=== PATIENT | male | born 1990 | race African-American/Black ===

== ENCOUNTER 2017-08-06 00:22 | Emergency (ER) | payer SELFPAY ==
[~2017-08-06] VITALS: Ht 195.6 cm; Wt 75.0 kg
[2017-08-06 00:23] VITALS: BP 131/86; PULSE 67; RESP 18; TEMP 98; O2SAT 100
[2017-08-06 00:51] LABS: AUTOMATED NEUTROPHIL # 4.4 TH/MM3 (1.8-7.7); BASOPHIL # 0.1 TH/MM3 (0-0.2); BASOPHIL % 0.8 % (0.0-2.0); EOSINOPHIL # 0.3 TH/MM3 (0-0.4); EOSINOPHIL % 3.8 % (0.0-4.0); HEMATOCRIT 40.8 % (39.0-51.0); HEMOGLOBIN 13.3 GM/DL (13.0-17.0); MEAN CELL VOLUME 88.5 FL (80.0-100.0); MEAN CORPUSCULAR HEMOGLOBIN 28.7 PG (27.0-34.0); MEAN CORPUSCULAR HGB CONC 32.5 % (32.0-36.0); MEAN PLATELET VOLUME 8.3 FL (7.0-11.0); MONO % 6.6 % (0.0-8.0); MONOCYTE # 0.5 TH/MM3 (0-0.9); NEUT % 52.8 % (16.0-70.0); PLATELET COUNT 197 TH/MM3 (150-450); RED BLOOD COUNT 4.61 MIL/MM3 (4.50-5.90); RED CELL DISTRIBUTION WIDTH 14.6 % (11.6-17.2); WHITE BLOOD COUNT 8.3 TH/MM3 (4.0-11.0)
[2017-08-06 01:07] LABS: ALBUMIN 4.6 GM/DL (3.4-5.0); ALT (GPT) 14 U/L (12-78); AST (GOT) 12 U/L (15-37); BICARBONATE 28.4 MEQ/L (21.0-32.0); BLOOD UREA NITROGEN 12 MG/DL (7-18); CALCIUM 9.3 MG/DL (8.5-10.1); CHLORIDE 105 MEQ/L (98-107); CREATININE 1.21 MG/DL (0.60-1.30); GLOMERULAR FILTRATION RATE 72 ML/MIN (>89); GLUCOSE,RANDOM 114 MG/DL (74-106); SODIUM (NA) 139 MEQ/L (136-145)
[2017-08-06 01:10] LABS: ALKALINE PHOSPHATASE 56 U/L (45-117); TOTAL BILIRUBIN ADULT 0.2 MG/DL (0.2-1.0); TOTAL PROTEIN 7.9 GM/DL (6.4-8.2)
[2017-08-06] MEDS ORDERED: ONDANSETRON HCL 4 MG/2 ML VIAL IV PUSH ONE (01:45)
[2017-08-06] MEDS ORDERED: SODIUM CHLOR 0.9% 1000 ML INJ 1,000 ML IV ONE (02:00)
--- NOTE | 2017-08-06 03:38 | PD ---
HPI Chief Complaint: GI Complaint Time Seen by Provider: 01:12 Travel History International Travel<30 days: No Contact w/Intl Traveler<30days: No Traveled to known affect area: No History of Present Illness HPI Patient has had multiple episodes of vomiting all day no other past medical history he has no abdominal pain . Pt reports that he just cannot keep anything down. he has no sick contacts, no fever no trauma , no PMHx . pt took nothing to relieve his symptoms and has not seen another MD to treat this vomiting PFSH Past Medical History Medical History: Denies Significant Hx Tetanus Vaccination: < 5 Years Influenza Vaccination: No Past Surgical History Surgical History: No Previous Surgery Social History Alcohol Use: Yes ([facility]) Tobacco Use: Yes Substance Use: No Allergies-Medications (Allergen,Severity, Reaction): Coded Allergies: No Known Allergies (Unverified , 08/06/17) Reported Meds & Prescriptions Reported Meds & Active Scripts Active Zofran (Ondansetron HCl) 4 Mg Tab 4 Mg PO Q6HR PRN Review of Systems Except as stated in HPI: all other systems reviewed are Neg Gastrointestinal: Positive: Nausea, Vomiting Physical Exam Narrative GENERAL: appears nauseous , non toxic and no other complaint except vomiting AOX3 SKIN: Warm and dry. HEAD: Atraumatic. Normocephalic. EYES: Pupils equal and round. No scleral icterus. No injection or drainage. ENT: No nasal bleeding or discharge. Mucous membranes pink and moist. NECK: Trachea midline. No JVD. CARDIOVASCULAR: Regular rate and rhythm. RESPIRATORY: No accessory muscle use. Clear to auscultation. Breath sounds equal bilaterally. GASTROINTESTINAL: Abdomen soft, NON-tender, nondistended. Hepatic and splenic margins not palpable. MUSCULOSKELETAL: Extremities without clubbing, cyanosis, or edema. No obvious deformities. NEUROLOGICAL: Awake and alert. No obvious cranial nerve deficits. Motor grossly within normal limits. Five out of 5 muscle strength in the arms and legs. Normal speech. PSYCHIATRIC: Appropriate mood and affect; insight and judgment normal. Data Data Last Documented VS Orders Orders Complete Blood Count With Diff (08/06/17 00:34) Comprehensive Metabolic Panel (08/06/17 00:34) Iv Access Insert/Monitor (08/06/17 00:34) Ondansetron Inj (Zofran Inj) (08/06/17 01:45) Sodium Chlor 0.9% 1000 Ml Inj (Ns 1000 M (08/06/17 02:00) Ed Discharge Order (08/06/17 04:39) Labs Laboratory Tests Test 08/06/17 00:37 White Blood Count 8.3 TH/MM3 Red Blood Count 4.61 MIL/MM3 Hemoglobin 13.3 GM/DL Hematocrit 40.8 % Mean Corpuscular Volume 88.5 FL Mean Corpuscular Hemoglobin 28.7 PG Mean Corpuscular Hemoglobin Concent 32.5 % Red Cell Distribution Width 14.6 % Platelet Count 197 TH/MM3 Mean Platelet Volume 8.3 FL Neutrophils (%) (Auto) 52.8 % Lymphocytes (%) (Auto) 36.0 % Monocytes (%) (Auto) 6.6 % Eosinophils (%) (Auto) 3.8 % Basophils (%) (Auto) 0.8 % Neutrophils # (Auto) 4.4 TH/MM3 Lymphocytes # (Auto) 3.0 TH/MM3 Monocytes # (Auto) 0.5 TH/MM3 Eosinophils # (Auto) 0.3 TH/MM3 Basophils # (Auto) 0.1 TH/MM3 CBC Comment DIFF FINAL Differential Comment Blood Urea Nitrogen 12 MG/DL Creatinine 1.21 MG/DL Random Glucose 114 MG/DL Total Protein 7.9 GM/DL Albumin 4.6 GM/DL Calcium Level 9.3 MG/DL Alkaline Phosphatase 56 U/L Aspartate Amino Transf (AST/SGOT) 12 U/L Alanine Aminotransferase (ALT/SGPT) 14 U/L Total Bilirubin 0.2 MG/DL Sodium Level 139 MEQ/L Potassium Level 4.1 MEQ/L Chloride Level 105 MEQ/L Carbon Dioxide Level 28.4 MEQ/L Anion Gap 6 MEQ/L Estimat Glomerular Filtration Rate 72 ML/MIN [facility] Medical Decision Making Medical Screen Exam Complete: Yes Emergency Medical Condition: Yes Differential Diagnosis viral Gastroenteritis vs SBO vs food toxin vomit, other Narrative Course Zofran IV and NS IV and pt slept and feels much better , all labs normal and pt feels good and tolerated PO Diagnosis Primary Impression: Vomiting Qualified Codes: R11.10 - Vomiting, unspecified Scripts Ondansetron (Zofran) 4 Mg Tab 4 MG PO Q6HR Y for NAUSEA OR VOMITING, #20 TAB 0 Refills Prov: To Yang MD 08/06/17 Disposition: 01 DISCHARGE HOME Condition: Good To Yang MD Aug 06, 2017 03:38
[2017-08-06] MEDS ORDERED: ZOFR4TAB PO (04:38)
== END 2017-08-06 04:42 | disposition home or self-care (01) ==
LOC: NEPE 00:22
DX: R11.2 Nausea with vomiting, unspecified (principal); Z72.0 Tobacco use
CPT/HCPCS: 80053; 85025; 96374; 99283; J2405; J7030

== ENCOUNTER 2017-11-21 07:33 | Emergency (ER) | payer SELFPAY ==
[~2017-11-21] VITALS: Ht 172.7 cm; Wt 70.0 kg
[~2017-11-21 07:33] MED LIST: ZOFR4TAB PO
[2017-11-21 07:36] VITALS: BP 121/69; PULSE 86; RESP 16; TEMP 98.6; O2SAT 100
--- NOTE | 2017-11-21 08:13 | PD ---
Data Data Last Documented VS Vital Signs Date Time Temp Pulse Resp B/P (MAP) Pulse Ox O2 Delivery O2 Flow Rate FiO2 11/21/17 12:40 66 16 118/77 (91) 100 11/21/17 07:36 98.6 Orders Orders Complete Blood Count With Diff (11/21/17 08:09) Comprehensive Metabolic Panel (11/21/17 08:09) Urinalysis - C+S If Indicated (11/21/17 08:09) Iv Access Insert/Monitor (11/21/17 08:09) Ecg Monitoring (11/21/17 08:09) Oximetry (11/21/17 08:09) Sodium Chloride 0.9% Flush (Ns Flush) (11/21/17 08:15) Gc And Chlamydia Pcr (11/21/17 08:09) Urine Culture (11/21/17 08:27) Chest, Single Ap (11/21/17 10:05) Azithromycin (Zithromax) (11/21/17 10:15) Ceftriaxone Inj (Rocephin Inj) (11/21/17 10:15) Ed Discharge Order (11/21/17 11:17) Labs Laboratory Tests Test 11/21/17 08:25 11/21/17 08:27 White Blood Count 4.4 TH/MM3 Red Blood Count 4.37 MIL/MM3 Hemoglobin 12.7 GM/DL Hematocrit 38.6 % Mean Corpuscular Volume 88.3 FL Mean Corpuscular Hemoglobin 29.1 PG Mean Corpuscular Hemoglobin Concent 33.0 % Red Cell Distribution Width 14.0 % Platelet Count 188 TH/MM3 Mean Platelet Volume 8.4 FL Neutrophils (%) (Auto) 51.4 % Lymphocytes (%) (Auto) 34.3 % Monocytes (%) (Auto) 9.3 % Eosinophils (%) (Auto) 4.3 % Basophils (%) (Auto) 0.7 % Neutrophils # (Auto) 2.3 TH/MM3 Lymphocytes # (Auto) 1.5 TH/MM3 Monocytes # (Auto) 0.4 TH/MM3 Eosinophils # (Auto) 0.2 TH/MM3 Basophils # (Auto) 0.0 TH/MM3 CBC Comment DIFF FINAL Differential Comment Blood Urea Nitrogen 9 MG/DL Creatinine 1.08 MG/DL Random Glucose 81 MG/DL Total Protein 7.3 GM/DL Albumin 4.3 GM/DL Calcium Level 8.9 MG/DL Alkaline Phosphatase 44 U/L Aspartate Amino Transf (AST/SGOT) 9 U/L Alanine Aminotransferase (ALT/SGPT) 12 U/L Total Bilirubin 0.5 MG/DL Sodium Level 142 MEQ/L Potassium Level 3.5 MEQ/L Chloride Level 110 MEQ/L Carbon Dioxide Level 26.8 MEQ/L Anion Gap 5 MEQ/L Estimat Glomerular Filtration Rate 99 ML/MIN Urine Color YELLOW Urine Turbidity CLEAR Urine pH 6.0 Urine Specific [place] 1.028 Urine Protein TRACE mg/dL Urine Glucose (UA) NEG mg/dL Urine Ketones NEG mg/dL Urine Occult Blood NEG Urine Nitrite NEG Urine Bilirubin NEG Urine Urobilinogen 2.0 MG/DL Urine Leukocyte Esterase MOD Urine RBC 6 /hpf Urine WBC 19 /hpf Urine Squamous Epithelial Cells 1 /hpf Urine Bacteria RARE /hpf Urine Mucus MANY /lpf Microscopic Urinalysis Comment CULTURE INDICATED Chlamydia trachomatis DNA (PCR) DETECTED Neisseria gonorrhoeae DNA (PCR) NOT DETECTED MDM Supervised Visit with [facility]ALINO: Yes Narrative Course I, Dr. Francois, have reviewed the advance practice practitioner's documentation and am in agreement, met with the patient face to face, made the diagnosis, and the medical decision making was done by me. *My assessment and Findings: Patient seen and examined by me in addition to Umesh Maurice PA-C, this is a 27-year-old very well-appearing male, weight loss, mild blood-tinged sputum with a dry cough. His chief complaint today however is a rash on the glans penis. This appears to be fungal in nature, no chancre is appreciated. We briefly considered the diagnosis of HIV in this patient as well, he looks pale but does not have any conjunctival pallor. There will soon 2 view chest x-ray is basic labs today. I anticipate that his workup will probably be negative here and will have to have him follow-up with his daily health clinic outpatient for further workup of his weight loss. He certainly is not cachectic however he is thin and has a BMI of 23.5 though I do not appreciate him to be having excessive weight loss at this time Scripts Fluconazole (Diflucan) 150 Mg Tab 150 MG PO WEEKLY for Infection, #2 TAB 0 Refills Prov: Alex Francois MD 11/21/17 Ciprofloxacin (Cipro) 500 Mg Tab 500 MG PO BID for Infection for 10 Days, #20 TAB 0 Refills Prov: Alex Francois MD 11/21/17 Condition: Stable Alex Francois MD Nov 21, 2017 08:13
[2017-11-21] MEDS ORDERED: SODIUM CHLORIDE 0.9% FLUSH 10 ML FLUSH IV FLUSH PRN (08:15)
--- NOTE | 2017-11-21 08:24 | PD ---
HPI Chief Complaint: ENT Complaint Time Seen by Provider: 07:43 Travel History International Travel<30 days: No Contact w/Intl Traveler<30days: No Traveled to known affect area: No History of Present Illness HPI 27-year-old -[place] male presents emergency department with multiple complaints. He states a 15 pound weight loss in the last 3 months. He states intermittent nausea and vomiting over that time. He said decreased appetite, and question of fevers off and on. He states in the last 2 weeks he has noted discoloration to the tip of his penis, which is not sore but sometimes itchy. He denies any bleeding. He states intermittent dysuria. He denies testicular pain, or flank pain. He states recent cough as well during this 3 month time period. This morning he coughed and had what he thought was blood in his sputum which brought him to the emergency department. He denies any upper respiratory symptoms currently. He denies chest pain or shortness of breath. He has no known drug allergies. PFSH Past Medical History Medical History: Denies Significant Hx Diminished Hearing: No Immunizations Current: No Tetanus Vaccination: Unknown Influenza Vaccination: No Past Surgical History Surgical History: No Previous Surgery Social History Alcohol Use: Yes (OCC) Tobacco Use: Yes Substance Use: Yes (MARIJUANA ) Allergies-Medications (Allergen,Severity, Reaction): Coded Allergies: No Known Allergies (Unverified , 11/21/17) Reported Meds & Prescriptions Reported Meds & Active Scripts Active Diflucan (Fluconazole) 150 Mg Tab 150 Mg PO WEEKLY Cipro (Ciprofloxacin HCl) 500 Mg Tab 500 Mg PO BID 10 Days Review of Systems Except as stated in HPI: all other systems reviewed are Neg General / Constitutional: Positive: Fever (Reported), Chills, Weight Loss Eyes: No: Visual changes HENT: No: Headaches Cardiovascular: No: Chest Pain or Discomfort Respiratory: Positive: Cough, Hemoptysis, No: Shortness of Breath, Wheezing, Sneezing, Orthopnea, Stridor, Night Sweats, Pleuritic Pain Gastrointestinal: Positive: Nausea, Vomiting, No: Diarrhea, Abdominal Pain, Hematemesis, Hematochezia, Constipation Genitourinary: Positive: Dysuria (See history of present illness), Discharge, Other (See history of present illness), No: Flank Pain Musculoskeletal: No: Pain Skin: No Rash Neurologic: No: Weakness Psychiatric: No: Depression Endocrine: No: Polydipsia Hematologic/Lymphatic: No: Easy Bruising Physical Exam Narrative GENERAL: Patient appears mildly ill but not septic SKIN: Warm and dry. Decreased pallor. Normal turgor HEAD: Atraumatic. Normocephalic. EYES: Pupils equal and round. No scleral icterus. No injection or drainage. ENT: No nasal bleeding or discharge. Mucous membranes pink and moist. Pharynx is clear. Airways patent. NECK: Trachea midline. Supple and nontender. CARDIOVASCULAR: Regular rate and rhythm. RESPIRATORY: No accessory muscle use. Clear to auscultation. Breath sounds equal bilaterally. GASTROINTESTINAL: Abdomen soft, non-tender, nondistended. Hepatic and splenic margins not palpable. GENITAL: Penis has some superficial discoloration to the meatus suggestive of fungal balanitis. This was examined with Dr. Francois. The area is nontender. No testicular pain. No hernias. MUSCULOSKELETAL: Extremities without clubbing, cyanosis, or edema. No obvious deformities. NEUROLOGICAL: Awake and alert. No obvious cranial nerve deficits. Motor grossly within normal limits. Five out of 5 muscle strength in the arms and legs. Normal speech. PSYCHIATRIC: Appropriate mood and affect; insight and judgment normal. Data Data Last Documented VS Vital Signs Date Time Temp Pulse Resp B/P (MAP) Pulse Ox O2 Delivery O2 Flow Rate FiO2 11/21/17 07:36 98.6 86 16 121/69 (86) 100 Orders Orders Complete Blood Count With Diff (11/21/17 08:09) Comprehensive Metabolic Panel (11/21/17 08:09) Urinalysis - C+S If Indicated (11/21/17 08:09) Iv Access Insert/Monitor (11/21/17 08:09) Ecg Monitoring (11/21/17 08:09) Oximetry (11/21/17 08:09) Sodium Chloride 0.9% Flush (Ns Flush) (11/21/17 08:15) Gc And Chlamydia Pcr (11/21/17 08:09) Urine Culture (11/21/17 08:27) Chest, Single Ap (11/21/17 10:05) Azithromycin (Zithromax) (11/21/17 10:15) Ceftriaxone Inj (Rocephin Inj) (11/21/17 10:15) Labs Laboratory Tests Test 11/21/17 08:25 11/21/17 08:27 White Blood Count 4.4 TH/MM3 Red Blood Count 4.37 MIL/MM3 Hemoglobin 12.7 GM/DL Hematocrit 38.6 % Mean Corpuscular Volume 88.3 FL Mean Corpuscular Hemoglobin 29.1 PG Mean Corpuscular Hemoglobin Concent 33.0 % Red Cell Distribution Width 14.0 % Platelet Count 188 TH/MM3 Mean Platelet Volume 8.4 FL Neutrophils (%) (Auto) 51.4 % Lymphocytes (%) (Auto) 34.3 % Monocytes (%) (Auto) 9.3 % Eosinophils (%) (Auto) 4.3 % Basophils (%) (Auto) 0.7 % Neutrophils # (Auto) 2.3 TH/MM3 Lymphocytes # (Auto) 1.5 TH/MM3 Monocytes # (Auto) 0.4 TH/MM3 Eosinophils # (Auto) 0.2 TH/MM3 Basophils # (Auto) 0.0 TH/MM3 CBC Comment DIFF FINAL Differential Comment Blood Urea Nitrogen 9 MG/DL Creatinine 1.08 MG/DL Random Glucose 81 MG/DL Total Protein 7.3 GM/DL Albumin 4.3 GM/DL Calcium Level 8.9 MG/DL Alkaline Phosphatase 44 U/L Aspartate Amino Transf (AST/SGOT) 9 U/L Alanine Aminotransferase (ALT/SGPT) 12 U/L Total Bilirubin 0.5 MG/DL Sodium Level 142 MEQ/L Potassium Level 3.5 MEQ/L Chloride Level 110 MEQ/L Carbon Dioxide Level 26.8 MEQ/L Anion Gap 5 MEQ/L Estimat Glomerular Filtration Rate 99 ML/MIN Urine Color YELLOW Urine Turbidity CLEAR Urine pH 6.0 Urine Specific [place] 1.028 Urine Protein TRACE mg/dL Urine Glucose (UA) NEG mg/dL Urine Ketones NEG mg/dL Urine Occult Blood NEG Urine Nitrite NEG Urine Bilirubin NEG Urine Urobilinogen 2.0 MG/DL Urine Leukocyte Esterase MOD Urine RBC 6 /hpf Urine WBC 19 /hpf Urine Squamous Epithelial Cells 1 /hpf Urine Bacteria RARE /hpf Urine Mucus MANY /lpf Microscopic Urinalysis Comment CULTURE INDICATED MDM Medical Decision Making Medical Screen Exam Complete: Yes Emergency Medical Condition: Yes Differential Diagnosis Bronchitis. Possible HIV. Fungal balanitis. Narrative Course Patient is medically stable at time of exam. Chest x-ray is ordered. IV access is obtained and labs are ordered including CBC, CMP, urinalysis, urine GC and chlamydia. CBC is unremarkable except for mild anemia with a hemoglobin of 12.7, hematocrit of 38.6. CMP shows chloride of 110, AST 9, alk phos 44, otherwise no significant findings. Urinalysis shows trace of protein, moderate leukocyte esterase, 6 RBCs, 19 WBCs , rare bacteria, and urine culture is placed. Chest x-ray shows no acute process. GC and Chlamydia are pending. Patient is given 1 g Rocephin IV. Patient is given 1200 mg azithromycin p.o. Patient will be continued on Cipro 500 mg twice daily 10 days. Recommend patient follow-up with the [facility] or [facility] department. Diagnosis Primary Impression: Urinary tract infection Qualified Codes: N30.00 - Acute cystitis without hematuria Additional Impressions: Possible exposure to STD Balanitis Referrals: [facility] Dept. Patient Instructions: Balanitis (ED), Chlamydia (ED), Dysuria (ED), General Instructions, Gonorrhea (ED) Additional Instructions: GC and Chlamydia are pending. Patient is given 1 g Rocephin IV. Patient is given 1200 mg azithromycin p.o. Patient will be continued on Cipro 500 mg twice daily 10 days. Recommend patient follow-up with the [facility] or [facility] department. Med/Other Pt SpecificInfo: Prescription(s) given Scripts Fluconazole (Diflucan) 150 Mg Tab 150 MG PO WEEKLY for Infection, #2 TAB 0 Refills Prov: Alex Francois MD 11/21/17 Ciprofloxacin (Cipro) 500 Mg Tab 500 MG PO BID for Infection for 10 Days, #20 TAB 0 Refills Prov: Alex Francois MD 11/21/17 Disposition: 01 DISCHARGE HOME Condition: Stable Arturo Maurice Nov 21, 2017 08:24
[2017-11-21 08:40] LABS: AUTOMATED NEUTROPHIL # 2.3 TH/MM3 (1.8-7.7); BASOPHIL % 0.7 % (0.0-2.0); EOSINOPHIL # 0.2 TH/MM3 (0-0.4); EOSINOPHIL % 4.3 % (0.0-4.0); HEMATOCRIT 38.6 % (39.0-51.0); HEMOGLOBIN 12.7 GM/DL (13.0-17.0); LYMPH % 34.3 % (9.0-44.0); LYMPHOCYTE # 1.5 TH/MM3 (1.0-4.8); MEAN CELL VOLUME 88.3 FL (80.0-100.0); MEAN CORPUSCULAR HEMOGLOBIN 29.1 PG (27.0-34.0); MEAN PLATELET VOLUME 8.4 FL (7.0-11.0); MONO % 9.3 % (0.0-8.0); MONOCYTE # 0.4 TH/MM3 (0-0.9); NEUT % 51.4 % (16.0-70.0); PLATELET COUNT 188 TH/MM3 (150-450); RED BLOOD COUNT 4.37 MIL/MM3 (4.50-5.90); WHITE BLOOD COUNT 4.4 TH/MM3 (4.0-11.0)
[2017-11-21 08:49] LABS: BACTERIA, URINE RARE /hpf; BILIRUBIN, URINE NEG (NEG); BLOOD, URINE NEG (NEG); GLUCOSE,URINE NEG (NEG); KETONE, URINE NEG (NEG); MUCUS URINE MANY /lpf (OCC); NITRITE,URINE NEG (NEG); SQUAMOUS EPITHELIAL CELL URINE 1 /hpf (0-5); URINE COLOR YELLOW (YELLW/STRAW); URINE LEUKOCYTE ESTERASE MOD (NEG)
[2017-11-21 08:56] LABS: ALBUMIN 4.3 GM/DL (3.4-5.0); ALT (GPT) 12 U/L (12-78); AST (GOT) 9 U/L (15-37); BICARBONATE 26.8 MEQ/L (21.0-32.0); BLOOD UREA NITROGEN 9 MG/DL (7-18); CALCIUM 8.9 MG/DL (8.5-10.1); CHLORIDE 110 MEQ/L (98-107); CREATININE 1.08 MG/DL (0.60-1.30); GLOMERULAR FILTRATION RATE 99 ML/MIN (>89); GLUCOSE,RANDOM 81 MG/DL (74-106); SODIUM (NA) 142 MEQ/L (136-145)
[2017-11-21 08:59] LABS: ALKALINE PHOSPHATASE 44 U/L (45-117); TOTAL BILIRUBIN ADULT 0.5 MG/DL (0.2-1.0); TOTAL PROTEIN 7.3 GM/DL (6.4-8.2)
[2017-11-21] MEDS ORDERED: AZITHROMYCIN 600 MG TAB PO ONE (10:15)
[2017-11-21] MEDS ORDERED: cefTRIAXone INJ 1,000 MG in SODIUM CHLORIDE 0.9% INJ 100 ML IV ONE (10:15)
[2017-11-21] MEDS ORDERED: DIFL150T PO (11:16)
[2017-11-21] MEDS ORDERED: CIPR-9 PO (11:16)
--- NOTE | 2017-11-21 11:17 | RADRPT ---
EXAM DATE/TIME: 11/21/2017 10:39 [place] COMPARISON: No previous studies available for comparison. INDICATIONS : Chest pain MEDICAL HISTORY : None. SURGICAL HISTORY : None. ENCOUNTER: Initial ACUITY: 1 day PAIN SCORE: 4/10 LOCATION: chest FINDINGS: A single view of the chest demonstrates the lungs to be symmetrically aerated without evidence of mas s, infiltrate or effusion. The cardiomediastinal contours are unremarkable. Osseous structures are intact with a mild levoscoliosis of the dorsal spine which may be positional. CONCLUSION: Negative exam. No acute cardiopulmonary process to explain current clinical symptoms. Filiberto Linton MD on November 21, 2017 at 11:14 Board Certified Radiologist. This report was verified electronically.
[2017-11-21 12:40] VITALS: BP 118/77
== END 2017-11-21 12:44 | disposition home or self-care (01) ==
LOC: NEPD 07:33
DX: N30.00 Acute cystitis without hematuria (principal); N48.1 Balanitis; R63.4 Abnormal weight loss; F12.90 Cannabis use, unspecified, uncomplicated; Z72.0 Tobacco use
CPT/HCPCS: 71045; 80053; 81001; 85025; 87086; 87491; 87591; 96365; 99284; J0696

== ENCOUNTER 2018-01-08 13:38 | Emergency (ER) | payer SELFPAY ==
[~2018-01-08] VITALS: Ht 172.7 cm; Wt 68.0 kg
[~2018-01-08 13:38] MED LIST changes: +CIPR-9 PO; +DIFL150T PO; -ZOFR4TAB PO
[2018-01-08 13:51] VITALS: BP 112/56; PULSE 88; RESP 18; TEMP 98.4; O2SAT 100
[2018-01-08] MEDS ORDERED: SODIUM CHLOR 0.9% 1000 ML INJ 1,000 ML IV SCH (14:25)
[2018-01-08] MEDS ORDERED: CLINDAMYCIN 600 MG/NS PREMIX 50 ML IV ONE (14:30)
[2018-01-08] MEDS ORDERED: KETOROLAC TROMETHAMINE 30 MG/ML (IVP) VIAL IVP ONE (14:30)
[2018-01-08] MEDS ORDERED: SODIUM CHLORIDE 0.9% FLUSH 10 ML FLUSH IV FLUSH PRN (14:30)
[2018-01-08] MEDS ORDERED: LIDOCAINE HCL 1% PF 30 ML VIAL INFIL ONE (14:30)
--- NOTE | 2018-01-08 14:43 | PD ---
HPI Chief Complaint: Bite or Sting Time Seen by Provider: 14:05 Travel History International Travel<30 days: No Contact w/Intl Traveler<30days: No Traveled to known affect area: No History of Present Illness HPI 27-year-old male presents to emergency department with complaint of right leg swelling started 3 days ago. He is also concerned of a possible spider bite to his right lateral upper leg that occurred 2 weeks ago. He is also complaining of right great toe nail drainage with his toe that is swollen, hot and red also. Denies injury. Denies fever, vomiting. Denies history of DVT. Denies paresthesias, loss of sensation, decreased range of motion, decreased strength to the affected extremity. Has been ambulatory on the affected extremity. Rates pain 10/10. Has been taking Tylenol for symptom management. Pain is aggravated with palpation, walking, movement. No known relieving factors. Denies IV drug use. No primary care provider. No known allergies. Denies significant past medical history. Has no other medical complaints. No other modifying factors or associated signs and symptoms. PFSH Past Medical History Diminished Hearing: No Immunizations Current: No Social History Alcohol Use: Yes (OCC) Tobacco Use: Yes Substance Use: Yes (MARIJUANA ) Allergies-Medications (Allergen,Severity, Reaction): Coded Allergies: No Known Allergies (Unverified , 11/21/17) Reported Meds & Prescriptions Reported Meds & Active Scripts Active Tramadol (Tramadol HCl) 50 Mg Tab 50 Mg PO Q4H PRN Ibuprofen 800 Mg Tab 800 Mg PO Q6HR PRN Clindamycin (Clindamycin HCl) 150 Mg Cap 450 Mg PO Q6H 10 Days Diflucan (Fluconazole) 150 Mg Tab 150 Mg PO WEEKLY Review of Systems Except as stated in HPI: all other systems reviewed are Neg Physical Exam Narrative GENERAL: Well-nourished, well-developed black male patient, in no acute distress SKIN: Warm and dry. Scabbed wounds noted to the right lower leg; the wound to the right lateral leg, of concern, is scabbed and without surrounding erythema, edema, fluctuance. HEAD: Atraumatic. Normocephalic. EYES: Pupils equal and round. No scleral icterus. No injection or drainage. ENT: Mucosa pink and moist. Airway patent. NECK: Trachea midline. CARDIOVASCULAR: Regular rate RESPIRATORY: No accessory muscle use. GASTROINTESTINAL: Flat. MUSCULOSKELETAL: Right great toe with swelling, redness, warmth to touch; drainage coming from bilateral edges of the toenail. right lower extremity supple and non-tense with 2+ pedal pulse and sensory intact and with erythema and edema noted from just below the knee down, including his foot. No obvious deformities. No clubbing. No cyanosis. No edema. NEUROLOGICAL: Awake and alert. Oriented 3. No obvious cranial nerve deficits. Motor grossly within normal limits. Normal speech. PSYCHIATRIC: Appropriate mood and affect; insight and judgment normal. Data Data Last Documented VS Vital Signs Date Time Temp Pulse Resp B/P (MAP) Pulse Ox O2 Delivery O2 Flow Rate FiO2 01/08/18 14:46 18 01/08/18 13:51 98.4 88 112/56 (74) 100 Orders Orders Basic Metabolic Panel (Bmp) (01/08/18 14:25) Complete Blood Count With Diff (01/08/18 14:25) Iv Access Insert/Monitor (01/08/18 14:25) Sodium Chlor 0.9% 1000 Ml Inj (Ns 1000 M (01/08/18 14:25) Sodium Chloride 0.9% Flush (Ns Flush) (01/08/18 14:30) Ketorolac Inj (Toradol Inj) (01/08/18 14:30) Us Leg Venous Doppler (01/08/18 ) Blood Culture (01/08/18 14:25) Lidocaine Pf 1% Inj (Xylocaine-Mpf 1% In (01/08/18 14:30) Clindamycin 600 Mg/Ns Premix (Cleocin 60 (01/08/18 14:30) Wound Care (01/08/18 16:17) Crutches (01/08/18 16:17) Ed Discharge Order (01/08/18 16:17) Labs Laboratory Tests Test 01/08/18 14:39 White Blood Count 7.2 TH/MM3 Red Blood Count 4.24 MIL/MM3 Hemoglobin 12.5 GM/DL Hematocrit 37.8 % Mean Corpuscular Volume 89.3 FL Mean Corpuscular Hemoglobin 29.5 PG Mean Corpuscular Hemoglobin Concent 33.1 % Red Cell Distribution Width 14.1 % Platelet Count 236 TH/MM3 Mean Platelet Volume 9.9 FL Neutrophils (%) (Auto) 57.7 % Lymphocytes (%) (Auto) 32.0 % Monocytes (%) (Auto) 6.8 % Eosinophils (%) (Auto) 2.9 % Basophils (%) (Auto) 0.6 % Neutrophils # (Auto) 4.2 TH/MM3 Lymphocytes # (Auto) 2.3 TH/MM3 Monocytes # (Auto) 0.5 TH/MM3 Eosinophils # (Auto) 0.2 TH/MM3 Basophils # (Auto) 0.0 TH/MM3 CBC Comment DIFF FINAL Differential Comment Blood Urea Nitrogen 7 MG/DL Creatinine 0.96 MG/DL Random Glucose 79 MG/DL Calcium Level 8.8 MG/DL Sodium Level 142 MEQ/L Potassium Level 4.1 MEQ/L Chloride Level 107 MEQ/L Carbon Dioxide Level 28.8 MEQ/L Anion Gap 6 MEQ/L Estimat Glomerular Filtration Rate 113 ML/MIN MDM Medical Decision Making Medical Screen Exam Complete: Yes Emergency Medical Condition: Yes Medical Record Reviewed: Yes Differential Diagnosis Cellulitis, DVT, infected ingrown toenails Narrative Course 27-year-old male with right lower leg that is warm to touch, edematous, and erythematous in areas. He also has infection to both edges of his right great toenail. He is afebrile and nontoxic-appearing. Denies fever, vomiting. Dr. Dasilva evaluated the patient and a plan of care was discussed. CBC, BMP, blood cultures, IV, IV fluids, Toradol, clindamycin 600 mg IV, right lower extremity venous Doppler ultrasound ordered. 1544: CBC, BMP unremarkable. 1615: Right leg venous Doppler ultrasound concludes: Lower Extremity Ultrasound 01/08/18 0000 Signed Impressions: Service Date/Time: Monday, January 08, 2018 15:07 - CONCLUSION: 1. No sonographic evidence for right lower extremity DVT. Holland Jones MD Discussed ultrasound findings with the patient. Patient provided crutches for support. See my procedure note for removal of ingrown toenails. Clindamycin, ibuprofen, tramadol prescribed for home. Instructed patient to follow up with primary care provider. Patient verbalizes understanding and agreement with treatment plan. Patient is medically cleared and stable for discharge. Discussed reasons to return to the emergency department. Patient agrees with treatment plan. The patients vital signs are stable and the patient is stable for outpatient follow-up and treatment. Patient discharged home, stable and in no acute distress. Procedures Procedure Narrative Ingrown toenail removal: The toe was digitally blocked with 1% lidocaine. The toe was cleaned with Betadine. Bilateral edges of the toenail were lifted and cut away using scissors. Patient tolerated well. Sterile dressing applied. Diagnosis Primary Impression: Ingrown toenail of right foot with infection Additional Impression: Cellulitis of right lower leg Referrals: [facility] [employer] Primary Care Physician Patient Instructions: Cellulitis (ED), Crutch Instructions (ED), General Instructions, Ingrown Nail (ED) Additional Instructions: Antibiotics as prescribed and complete full course; take a prescription for clindamycin to [facility] Ibuprofen or Tylenol as directed and as needed for pain and inflammation Elevate affected extremity to reduce pain and inflammation Follow-up with primary care provider Follow-up with podiatry as needed Return to the emergency department immediately for worsening of symptoms Med/Other Pt SpecificInfo: Prescription(s) given Scripts Tramadol (Tramadol) 50 Mg Tab 50 MG PO Q4H Y for PAIN, #8 TAB 0 Refills Prov: Stephanie Segundo 01/08/18 Ibuprofen (Ibuprofen) 800 Mg Tab 800 MG PO Q6HR Y for PAIN, #30 TAB 0 Refills Prov: Stephanie Segundo 01/08/18 Clindamycin (Clindamycin) 150 Mg Cap 450 MG PO Q6H for Infection for 10 Days, #120 CAP 0 Refills Prov: Stephanie Segundo 01/08/18 Disposition: 01 DISCHARGE HOME Condition: Stable Stephanie Segundo January 08, 2018 14:43
[2018-01-08 15:25] LABS: AUTOMATED NEUTROPHIL # 4.2 TH/MM3 (1.8-7.7); BASOPHIL % 0.6 % (0.0-2.0); EOSINOPHIL # 0.2 TH/MM3 (0-0.4); EOSINOPHIL % 2.9 % (0.0-4.0); HEMATOCRIT 37.8 % (39.0-51.0); HEMOGLOBIN 12.5 GM/DL (13.0-17.0); LYMPHOCYTE # 2.3 TH/MM3 (1.0-4.8); MEAN CELL VOLUME 89.3 FL (80.0-100.0); MEAN CORPUSCULAR HEMOGLOBIN 29.5 PG (27.0-34.0); MEAN CORPUSCULAR HGB CONC 33.1 % (32.0-36.0); MEAN PLATELET VOLUME 9.9 FL (7.0-11.0); MONO % 6.8 % (0.0-8.0); MONOCYTE # 0.5 TH/MM3 (0-0.9); NEUT % 57.7 % (16.0-70.0); PLATELET COUNT 236 TH/MM3 (150-450); RED BLOOD COUNT 4.24 MIL/MM3 (4.50-5.90); RED CELL DISTRIBUTION WIDTH 14.1 % (11.6-17.2); WHITE BLOOD COUNT 7.2 TH/MM3 (4.0-11.0)
[2018-01-08 15:28] LABS: BICARBONATE 28.8 MEQ/L (21.0-32.0); CALCIUM 8.8 MG/DL (8.5-10.1); CREATININE 0.96 MG/DL (0.60-1.30)
--- NOTE | 2018-01-08 15:56 | RADRPT ---
EXAM DATE/TIME: 01/08/2018 15:07 [place] COMPARISON: No previous studies available for comparison. INDICATIONS : Right lower extremity pain. MEDICAL HISTORY : None. SURGICAL HISTORY : None. ENCOUNTER: Initial ACUITY: 4 - 6 days PAIN SCORE: 8/10 LOCATION: Right lower extremity TECHNIQUE: Venous ultrasound of the leg was performed from the inguinal ligament to the proximal calf. Real-carmita e, color Doppler and spectral tracing, compression and augmentation techniques were used. FINDINGS: There is normal compressibility of the deep venous system from the inguinal region to the proximal ca lf. No echogenic clot is seen in the lumen of the common femoral, femoral, popliteal, and posterior tibial veins. There is a normal response of the venous system to proximal and distal augmentation an d respiration. CONCLUSION: 1. No sonographic evidence for right lower extremity DVT. Holland Jones MD on January 08, 2018 at 15:54 Board Certified Radiologist. This report was verified electronically.
[2018-01-08] MEDS ORDERED: TRAM50TA PO (16:16)
[2018-01-08] MEDS ORDERED: IBUP1TAB7 PO (16:16)
[2018-01-08] MEDS ORDERED: CLIN150C14 PO (16:16)
== END 2018-01-08 16:37 | disposition home or self-care (01) ==
LOC: NEPD 13:38
DX: L60.0 Ingrowing nail (principal); L03.115 Cellulitis of right lower limb; R60.0 Localized edema; Z72.0 Tobacco use; Z79.899 Other long term (current) drug therapy
CPT/HCPCS: 11750; 80048; 85025; 87040; 93971; 96374; 96375; 99284; E0113; J1885; J7030

== ENCOUNTER 2018-01-21 15:55 | Emergency (ER) | payer SELFPAY ==
[~2018-01-21] VITALS: Ht 172.7 cm; Wt 75.0 kg
[2018-01-21 15:55] VITALS: BP 117/57; PULSE 87; RESP 16; TEMP 98.8; O2SAT 99
[~2018-01-21 15:55] MED LIST changes: -CIPR-9 PO; +CLIN150C14 PO; +IBUP1TAB7 PO; +TRAM50TA PO
[2018-01-21] MEDS ORDERED: BACT800T5 PO (16:12)
[2018-01-21] MEDS ORDERED: LIDOCAINE 1%/EPINEPHrine 1:100,000 SOLN 20 ML VIAL INFIL ONE (16:15)
--- NOTE | 2018-01-21 16:17 | PD ---
HPI . Abscesses Chief Complaint: Skin Problem Time Seen by Provider: 16:00 Travel History International Travel<30 days: No Contact w/Intl Traveler<30days: No Traveled to known affect area: No History of Present Illness HPI Patient presents with chief complaint of multiple abscesses. Onset was 4 days ago. They are getting progressively worse. He rates the pain at 8/10. There have been no modifying factors. PFSH Past Medical History Diminished Hearing: No Immunizations Current: No Social History Alcohol Use: Yes (OCC) Tobacco Use: Yes Substance Use: Yes (MARIJUANA ) Allergies-Medications (Allergen,Severity, Reaction): Coded Allergies: No Known Allergies (Unverified , 01/21/18) Reported Meds & Prescriptions Reported Meds & Active Scripts Active Bactrim DS (Sulfamethoxazole-Trimethoprim) 800-160 Mg Tab 1 Tab PO BID Review of Systems Except as stated in HPI: all other systems reviewed are Neg General / Constitutional: No: Fever, Chills Skin: Positive Lesions Physical Exam Narrative GENERAL: Awake and alert and in no acute distress. SKIN: Warm and dry. He has multiple abscesses on the left hip, left thigh and right thigh. Some of them are fluctuant and pointing. HEAD: Normocephalic/atraumatic. EYES: Pupils are equal. Extraocular movements are intact. NECK: Normal range of motion. CARDIOVASCULAR: Regular rate and rhythm. RESPIRATORY: Nonlabored respirations. MUSCULOSKELETAL: Atraumatic. NEUROLOGICAL: Nonfocal. PSYCHIATRIC: Appropriate mood and affect. Data Data Last Documented VS Vital Signs Date Time Temp Pulse Resp B/P (MAP) Pulse Ox O2 Delivery O2 Flow Rate FiO2 01/21/18 15:55 98.8 87 16 117/57 (77) 99 Orders Orders Lidocai-Epi 1%-1:100,000 Inj (Xylocaine- (01/21/18 16:15) Wound Care (01/21/18 16:33) Ed Discharge Order (01/21/18 16:33) [facility] Medical Decision Making Medical Screen Exam Complete: Yes Emergency Medical Condition: Yes Differential Diagnosis My differential diagnosis closed but is not limited to abscess, cyst, lipoma Narrative Course Patient presents with multiple abscesses on the left thigh, left pelvic and right thigh. Some of the abscesses are ready for drainage and some are not. The patient will be discharged home with a prescription for Bactrim. He will be instructed to return here in 2 days for recheck. Procedures Procedure Narrative INCISION AND DRAINAGE OF ABSCESSES X 4: The areas were prepped with ChloraPrep. A subcutaneous wheal of 1 % Xylocaine with epi was injected into each abscess with a total of 8 mL used to anesthetize the area properly. A number 11 scalpel was used to make a 1 -cm incision across each area of induration. The abscesses were drained and complex loculations were broken down. 1/2 inch plain packing was placed in 3 of the 4 wounds. The fourth wound was very superficial. Sterile dressings applied. Patient advised to have packing removed in two days. Diagnosis Primary Impression: Multiple abscesses of both legs Patient Instructions: Abscess (ED), General Instructions Med/Other Pt SpecificInfo: Prescription(s) given Scripts Sulfamethoxazole-Trimethoprim (Bactrim DS) 800-160 Mg Tab 1 TAB PO BID for Infection, #20 TAB 0 Refills Prov: Marcia Dasilva MD 01/21/18 Disposition: 01 DISCHARGE HOME Condition: Stable Marcia Dasilva MD Jan 21, 2018 16:17
== END 2018-01-21 16:57 | disposition home or self-care (01) ==
LOC: NEPD 15:55
DX: L02.415 Cutaneous abscess of right lower limb (principal); L02.416 Cutaneous abscess of left lower limb; F12.90 Cannabis use, unspecified, uncomplicated; Z72.0 Tobacco use
CPT/HCPCS: 10061

== ENCOUNTER 2018-01-24 12:31 | Emergency (ER) | payer SELFPAY ==
[~2018-01-24] VITALS: Ht 172.7 cm; Wt 65.0 kg
[~2018-01-24 12:31] MED LIST changes: +BACT800T5 PO; -CLIN150C14 PO; -DIFL150T PO; -IBUP1TAB7 PO; -TRAM50TA PO
[2018-01-24 12:46] VITALS: BP 116/61; PULSE 88; RESP 18; TEMP 99; O2SAT 99
--- NOTE | 2018-01-24 13:03 | PD ---
HPI Chief Complaint: Skin Problem Time Seen by Provider: 12:53 Travel History International Travel<30 days: No Contact w/Intl Traveler<30days: No Traveled to known affect area: No History of Present Illness HPI 19-year-old male previously seen on January 21 for for abscesses to the lower extremities. These were I&D and packed by Dr. Dasilva, and the patient was placed on Bactrim DS twice daily 7 days. The patient returns to emergency department today for recheck. Patient states the packing already fell out on all of them. They continue to drain but he states the pain and redness is improved. He has had no fevers. He has no known drug allergies. PFSH Past Medical History Diminished Hearing: No Immunizations Current: No Social History Alcohol Use: Yes (OCC) Tobacco Use: Yes Substance Use: Yes (MARIJUANA ) Allergies-Medications (Allergen,Severity, Reaction): Coded Allergies: No Known Allergies (Unverified , 01/21/18) Reported Meds & Prescriptions Reported Meds & Active Scripts Active Bactrim DS (Sulfamethoxazole-Trimethoprim) 800-160 Mg Tab 1 Tab PO BID Review of Systems Except as stated in HPI: all other systems reviewed are Neg General / Constitutional: No: Fever Eyes: No: Visual changes HENT: No: Headaches Cardiovascular: No: Chest Pain or Discomfort Respiratory: No: Shortness of Breath Gastrointestinal: No: Abdominal Pain Genitourinary: No: Dysuria Musculoskeletal: No: Pain Skin: No Rash Neurologic: No: Weakness Psychiatric: No: Depression Endocrine: No: Polydipsia Hematologic/Lymphatic: No: Easy Bruising Physical Exam Narrative GENERAL: Patient appears in no acute distress SKIN: Warm and dry. Normal color. Normal turgor. Patient has draining abscesses to the left thigh 4. There is no significant induration or erythema surrounding each 1. Patient states he feels improved. HEAD: Atraumatic. Normocephalic. EYES: Pupils equal and round. No scleral icterus. No injection or drainage. ENT: No nasal bleeding or discharge. Mucous membranes pink and moist. NECK: Trachea midline. Supple. CARDIOVASCULAR: Regular rate and rhythm. RESPIRATORY: No accessory muscle use. Clear to auscultation. Breath sounds equal bilaterally. MUSCULOSKELETAL: Extremities without clubbing, cyanosis, or edema. No obvious deformities. NEUROLOGICAL: Awake and alert. No obvious cranial nerve deficits. Motor grossly within normal limits. Five out of 5 muscle strength in the arms and legs. Normal speech. PSYCHIATRIC: Appropriate mood and affect; insight and judgment normal. Data Data Last Documented VS Vital Signs Date Time Temp Pulse Resp B/P (MAP) Pulse Ox O2 Delivery O2 Flow Rate FiO2 01/24/18 12:46 99.0 88 18 116/61 (79) 99 MDM Medical Decision Making Medical Screen Exam Complete: Yes Emergency Medical Condition: Yes Medical Record Reviewed: Yes Differential Diagnosis MRSA. Cellulitis. Abscess. Recheck. Narrative Course All wounds were inspected and appear to be healing well. Patient is to continue cleaning the areas twice daily with soap and water and keeping them covered. Patient should take all of his Bactrim as prescribed. Patient to follow-up if symptoms worsen as needed. Diagnosis Primary Impression: Encounter for recheck of abscess following incision and drainage Patient Instructions: Abscess Follow-up (ED), General Instructions Additional Instructions: Patient is to continue cleaning the areas twice daily with soap and water and keeping them covered. Patient should take all of his Bactrim as prescribed. Patient to follow-up if symptoms worsen as needed. Med/Other Pt SpecificInfo: No Change to Meds, Wound Care Disposition: 01 DISCHARGE HOME Condition: Stable Arturo Maurice Jan 24, 2018 13:03
== END 2018-01-24 13:11 | disposition home or self-care (01) ==
LOC: NEPK 12:31
DX: Z48.01 Encounter for change or removal of surgical wound dressing (principal); L02.416 Cutaneous abscess of left lower limb; F12.90 Cannabis use, unspecified, uncomplicated; Z72.0 Tobacco use
CPT/HCPCS: 99281